=== PATIENT | female | born 1995 | race Caucasian/White ===

== ENCOUNTER → 2021-01-26 13:17 | Outpatient (CLI) | payer OTHER, SELFPAY ==
--- NOTE | 2021-01-26 | DI.CT.S_ITS ---
PROCEDURE: CT ABDOMEN PELVIS W CON INDICATIONS: Trauma, fall greater than 6 ft. Hip/pelvis left upper quadrant pain. Diarrhea, nausea and vomiting, abdominal pain TECHNIQUE: After the administration of intravenous contrast, 5 mm thick sections acquired from the diaphragm to the symphysis. 5 mm coronal and sagittal reformats were acquired. For radiation dose reduction, the following was used: automated exposure control, adjustment of mA and/or kV according to patient size. COMPARISON: None. FINDINGS: Image quality: Excellent. ABDOMEN: Lung bases: Likely atelectasis can be seen involving the right middle lobe medially. Heart size is normal. Solid organs: Liver is normal in size and enhancement. Gallbladder has been removed. Biliary system is non dilated. Pancreas enhances normally. Spleen is normal in size and enhancement. No adrenal nodules. Kidneys demonstrate normal size and enhancement, without hydronephrosis. Peritoneum and bowel: Bowel loops demonstrate normal wall thickness and caliber. No free fluid or air. A normal appendix is incidentally noted. Nodes and vessels: No retroperitoneal or mesenteric adenopathy by size criteria. Aorta and inferior vena cava are normal in size. Miscellaneous: No ventral hernias. PELVIS: Genitourinary: Bladder wall thickness is normal. The uterus appears normal for age. No adnexal masses are seen. There is a presumed hemorrhagic cyst left ovary that measures 1.9 cm, as on series 2, image 117. Miscellaneous: No inguinal hernias or adenopathy. Bones: No suspicious bony lesions. A presumed left iliac bone island can be seen, as on series 4, image 72. No vertebral body compression fractures. IMPRESSION: In this patient with a given history of trauma, no fractures or dislocations can be seen. No solid organ injury can be seen. No findings of free air or significant free fluid can be seen. No significant splenic abnormality can be seen in this patient with a given history of left upper quadrant pain. A presumed left ovarian hemorrhagic cyst can be seen. At clinical discretion, a followup pelvic ultrasound could be considered in 6 weeks to assure resolution/ improvement. Incidental note is made of: Apparent right middle lobe atelectasis medially Cholecystectomy Normal appendix Dictated by: Naseem Ramacahndran M.D. on 01/26/2021 at 14:14 Approved by: Naseem Ramachandran M.D. on 01/26/2021 at 14:20
== END ==
PROVIDERS: Referring Provider Student in an Organized Health Care Education/Training Program; Visit Provider Student in an Organized Health Care Education/Training Program
DX: T14.90XA Injury, unspecified, initial encounter (principal); K62.5 Hemorrhage of anus and rectum; R19.7 Diarrhea, unspecified; R11.2 Nausea with vomiting, unspecified; M25.552 Pain in left hip; R10.12 Left upper quadrant pain; W11.XXXA Fall on and from ladder, initial encounter; Z90.49 Acquired absence of other specified parts of digestive tract
CPT/HCPCS: 74177; Q9967